=== PATIENT | male | born 1990 | race Caucasian/White ===

== ENCOUNTER 2020-01-20 20:29 | Emergency (ER) | payer OTHER, SELFPAY ==
[2020-01-20 20:37] VITALS: BP 144/84; PULSE 84; RESP 16; TEMP 37; O2SAT 98; BMI 44.1
== END 2020-01-20 23:09 ==
PROVIDERS: Emergency Provider Emergency Medicine
DX: Z53.21 Procedure and treatment not carried out due to patient leaving prior to being seen by health care provider (principal)
CPT/HCPCS: 99281